=== PATIENT | female | born 1945 | race Caucasian/White ===

== ENCOUNTER 2016-08-03 13:21 | Outpatient (CLI) | payer MEDICARE | END 2016-08-03 13:22 | disposition EMS.NT | DX: R03.0 Elevated blood-pressure reading, without diagnosis of hypertension (principal) ==

== ENCOUNTER 2016-08-05 21:53 | Emergency (ER) | payer MEDICARE ==
[2016-08-06] MEDS ORDERED: SODIUM CHLORIDE 0.9% 500 ML IV STA (00:15)
== END 2016-08-06 04:21 | disposition home or self-care (01) ==
DX: I10 Essential (primary) hypertension (principal); R00.0 Tachycardia, unspecified; I51.7 Cardiomegaly; E11.9 Type 2 diabetes mellitus without complications; Z79.82 Long term (current) use of aspirin; M85.80 Other specified disorders of bone density and structure, unspecified site

== ENCOUNTER 2022-12-07 20:45 | Outpatient (CLI) | payer OTHER | END 2022-12-07 23:59 | disposition EMS.NT | LOC: EMS 20:45 | DX: Z03.89 Encounter for observation for other suspected diseases and conditions ruled out (principal) ==